=== PATIENT | female | born 1950 | race Caucasian/White ===

== ENCOUNTER 2017-08-12 10:14 | Day surgery (SDC) | payer MEDICARE, OTHER ==
[~2017-08-12] VITALS: Ht 147.3 cm; Wt 71.4 kg
[~2017-08-12 10:14] MED LIST: AMLO-512 PO; CLOP75 PO; GABA-533 PO; LOSA25TA21 PO; PRAV40TA4 PO; SITA1TAB2 PO; SODIUM CHLORIDE 0.9% 1,000 ML IV ONE
[2017-08-12] MEDS ORDERED: SODIUM CHLORIDE 0.9% 1,000 ML IV ONE (11:00)
[2017-08-12 11:12] LABS: ANION GAP 9 mmol/L (8-16); CALCIUM, TOTAL 9.1 mg/dL (8.8-10.5); CARBON DIOXIDE 28 mmol/L (22-29); CHLORIDE 105 mmol/L (98-107); CREATININE 0.56 mg/dL (0.60-1.30); GLOMERULAR FILTR. RATE CALC > 60 mL/min (>60); GLUCOSE,RANDOM 86 mg/dL (70-110); POTASSIUM 4.2 mmol/L (3.5-5.1); SODIUM SERUM 142 mmol/L (136-145); UREA NITROGEN, BLOOD 10 mg/dL (7-18)
[2017-08-12] MEDS ORDERED: SODIUM BICARBONATE 50 MEQ/50 ML VIAL ONE (11:18)
[2017-08-12] MEDS ORDERED: LIDOCAINE HCL/PF 1% 30 ML VIAL ONE (11:18)
[2017-08-12 11:40] VITALS: BP 113/69
[2017-08-12] MEDS ORDERED: FentaNYL CITRATE-PF 100 MCG/2 ML VIAL ONE (12:03)
[2017-08-12] MEDS ORDERED: MIDAZOLAM HCL 2 MG/2 ML VIAL ONE (12:03)
[2017-08-12] MEDS ORDERED: MIDAZOLAM HCL 2 MG/2 ML VIAL IVP ONE ×2 (12:15)
[2017-08-12] MEDS ORDERED: LIDOCAINE 1% 30 ML/SOD BICARB 8.4% 4 ML SQ ONE (12:15)
[2017-08-12] MEDS ORDERED: FentaNYL CITRATE-PF 100 MCG/2 ML VIAL IVP ONE ×2 (12:15)
[2017-08-12 12:18] VITALS: BP 105/59
[2017-08-12] MEDS ORDERED: CeFAZolin 1 GM/DEXTROSE 50 ML IV ONE ×2 (14:56→15:00)
== END 2017-08-12 16:00 | disposition home or self-care (01) ==
LOC: SDS 10:14
PROVIDERS: ATTEND Internal Medicine Cardiovascular Disease
DX: I25.9 Chronic ischemic heart disease, unspecified (principal); I11.9 Hypertensive heart disease without heart failure; E11.9 Type 2 diabetes mellitus without complications; M19.90 Unspecified osteoarthritis, unspecified site; F41.9 Anxiety disorder, unspecified; F32.9 Major depressive disorder, single episode, unspecified; E78.5 Hyperlipidemia, unspecified; F17.210 Nicotine dependence, cigarettes, uncomplicated; K21.9 Gastro-esophageal reflux disease without esophagitis; Z98.890 Other specified postprocedural states; Z88.6 Allergy status to analgesic agent; Z91.040 Latex allergy status; Z79.899 Other long term (current) drug therapy
CPT/HCPCS: 33282; 36415; 80048; 85610; 85730; 93005; J0690; J2250; J3010; J3490 ×2; J7030

== ENCOUNTER 2017-09-30 08:50 | Day surgery (SDC) | payer MEDICARE, OTHER ==
[~2017-09-30] VITALS: Ht 147.3 cm; Wt 70.5 kg
[~2017-09-30 08:50] MED LIST changes: +0.9% SODIUM CHLORIDE 10 ML SYRINGE IVP PRN; +METOPROLOL TARTRATE 50 MG TABLET PO PRN; +OXYB5 PO; -SODIUM CHLORIDE 0.9% 1,000 ML IV ONE
[2017-09-30 09:28] LABS: ANION GAP 6 mmol/L (8-16); CALCIUM, TOTAL 9.1 mg/dL (8.8-10.5); CARBON DIOXIDE 32 mmol/L (22-29); CHLORIDE 104 mmol/L (98-107); CREATININE 0.62 mg/dL (0.60-1.30); GLOMERULAR FILTR. RATE CALC > 60 mL/min (>60); GLUCOSE,RANDOM 105 mg/dL (70-110); POTASSIUM 4.2 mmol/L (3.5-5.1); SODIUM SERUM 142 mmol/L (136-145); UREA NITROGEN, BLOOD 11 mg/dL (7-18)
[2017-09-30] MEDS ORDERED: NITROGLYCERIN 400 MCG/SUBLINGUAL SPRAY 4.9 GM BOTTLE SL ONE (09:45)
[2017-09-30] MEDS ORDERED: METOPROLOL TARTRATE 5 MG/5 ML VIAL ONE (09:45)
[2017-09-30] MEDS ORDERED: SODIUM CHLORIDE 0.9% 100 ML ONE (09:49)
[2017-09-30] MEDS ORDERED: IOVERSOL 350 MG/ML 150 ML VIAL ONE (09:49)
== END 2017-09-30 10:55 | disposition home or self-care (01) ==
LOC: SURGERY 08:50 → EDSTATUS 10:00 → SURGERY 10:55
PROVIDERS: ATTEND Internal Medicine Cardiovascular Disease
DX: I25.10 Atherosclerotic heart disease of native coronary artery without angina pectoris (principal); F17.210 Nicotine dependence, cigarettes, uncomplicated; E78.00 Pure hypercholesterolemia, unspecified; F32.9 Major depressive disorder, single episode, unspecified; F41.9 Anxiety disorder, unspecified; K21.9 Gastro-esophageal reflux disease without esophagitis; E11.9 Type 2 diabetes mellitus without complications; I11.9 Hypertensive heart disease without heart failure; I34.0 Nonrheumatic mitral (valve) insufficiency; Z88.6 Allergy status to analgesic agent; Z90.89 Acquired absence of other organs; Z91.040 Latex allergy status; Z91.048 Other nonmedicinal substance allergy status; Z79.84 Long term (current) use of oral hypoglycemic drugs; Z79.899 Other long term (current) drug therapy; Z98.890 Other specified postprocedural states
CPT/HCPCS: 36415; 75574; 80048; 93005; J7050; Q9967; J3490

== ENCOUNTER → 2017-12-05 | Outpatient (CLI) | payer MEDICARE, OTHER ==
[~2017-12-05] MED LIST changes: -0.9% SODIUM CHLORIDE 10 ML SYRINGE IVP PRN; -METOPROLOL TARTRATE 50 MG TABLET PO PRN
== END | disposition home or self-care (01) ==
LOC: RADMN 12:53
PROVIDERS: ATTEND Internal Medicine Cardiovascular Disease
DX: M47.896 Other spondylosis, lumbar region (principal); M77.8 Other enthesopathies, not elsewhere classified; M46.04 Spinal enthesopathy, thoracic region
CPT/HCPCS: 72128